=== PATIENT | female | born 1980 | race Caucasian/White ===

== ENCOUNTER 2022-01-11 11:36 | Outpatient (CLI) | payer OTHER | END 2022-01-11 12:50 | disposition home or self-care (01) | LOC: NST 11:36 | PROVIDERS: ATTEND Obstetrics & Gynecology | DX: Z34.83 Encounter for supervision of other normal pregnancy, third trimester (principal) ==

== ENCOUNTER 2022-01-13 11:50 | Outpatient (CLI) | payer OTHER | END 2022-01-13 12:53 | disposition home or self-care (01) | LOC: NST 11:50 | PROVIDERS: ATTEND Obstetrics & Gynecology | DX: Z34.83 Encounter for supervision of other normal pregnancy, third trimester (principal) ==